=== PATIENT | male | born 1945 | race Hispanic/Latino ===

== ENCOUNTER 2017-06-19 10:00 | Emergency (ER) | payer MEDICARE ==
[~2017-06-19] VITALS: Ht 170.2 cm; Wt 83.9 kg
[2017-06-19] MEDS ORDERED: SODIUM CHLORIDE FLUSH 10 ML SYR INJ PRN (10:30)
[2017-06-19] MEDS ORDERED: OMEPRAZOLE40 MG PO (11:29)
[2017-06-19] MEDS ORDERED: ATORVASTATIN CA20 MG PO (11:29)
[2017-06-19] MEDS ORDERED: LISINOPRIL10 MG PO (11:29)
[2017-06-19] MEDS ORDERED: ULTRAM50 MG PO (11:29)
[2017-06-19] MEDS ORDERED: METOPROLOL SUCC25 MG PO (11:29)
[2017-06-19] MEDS ORDERED: AMITIZA24 MCG PO (11:29)
[2017-06-19] MEDS ORDERED: CITALOPRAM HBR20 MG PO (11:29)
[2017-06-19] MEDS ORDERED: GLIPIZIDE5 MG PO (11:29)
[2017-06-19] MEDS ORDERED: AMLODIPINE BESYL5 MG PO (11:29)
[2017-06-19 11:31] LABS: BASOPHILS # (AUTO) 0.1 (0.0-0.1); BASOPHILS % 0.6 % (0.0-1.0); EOSINOPHILS # (AUTO) 0.2 (0.0-0.4); EOSINOPHILS % 1.4 % (0.0-6.0); HEMOGLOBIN 11.3 g/dL (14.0-18.0); LYMPHOCYTES # (AUTO) 2.3 (1.0-3.2); LYMPHOCYTES % 16.2 % (18.0-39.1); MEAN CORPUSCULAR HEMOGLOBIN 30.9 pg (28-32); MEAN CORPUSCULAR HGB CONC 34.2 g/dL (31-35); MEAN CORPUSCULAR VOLUME 90.2 fL (81-99); MONOCYTES # (AUTO) 1.1 (0.2-0.8); MONOCYTES % 7.7 % (4.4-11.3); NEUTROPHILS # (AUTO) 10.2 (2.1-6.9); NEUTROPHILS % 73.2 % (38.7-80.0); PLATELET COUNT 256 x10e3/uL (140-360); RED BLOOD COUNT 3.66 x10e6/uL (4.3-5.7)
--- NOTE | 2017-06-19 11:58 | Diagnostic Imaging Report ---
RIGHT FOOT X-RAY - 3 VIEWS, RIGHT ANKLE X-RAY, 3 VIEWS HISTORY: \S\pain, unknown injury \[id number] \S\[id number] COMPARISON: None available. FINDINGS: Bones: No acute displaced fracture. Osseous alignment is within normal limits. Joints: Mild degenerative changes of the first metatarsophalangeal joint. Calcaneal enthesopathy. Soft tissues: Diffuse vascular calcifications. IMPRESSION: No acute radiographic abnormality. Signed by: Dr. Chen Merino M.D. on 06/19/2017 11:52 AM
[2017-06-19 11:59] LABS: ALBUMIN 3.2 g/dL (3.5-5.0); ALBUMIN/GLOBULIN RATIO 0.7 (0.8-2.0); ANION GAP 16.1 mmol/L (8-16); CALCIUM 9.9 mg/dL (8.4-10.2); CREATININE, SERUM 2.1 mg/dL (0.72-1.25); POTASSIUM 4.1 mmol/L (3.5-5.1)
[2017-06-19] MEDS ORDERED: LEVOFLOXACIN 750MG/D5W 150ML 150 ML IV ONE (12:30)
[2017-06-19] MEDS ORDERED: TRIMETHOPRIM/SULFAMETHOXAZOLE 160-800 MG TAB PO ONE (12:30)
== END 2017-06-19 13:43 | disposition home or self-care (01) ==
LOC: ER 10:00
DX: M25.571 Pain in right ankle and joints of right foot (principal); L03.115 Cellulitis of right lower limb; I10 Essential (primary) hypertension; E11.9 Type 2 diabetes mellitus without complications; Z95.1 Presence of aortocoronary bypass graft
CPT/HCPCS: 36415; 80053; 85025; 87040; 93971; 99284

== ENCOUNTER 2017-07-02 09:30 | Inpatient (IN) | payer MEDICARE ==
[~2017-07-02] VITALS: Ht 157.5 cm; Wt 82.6 kg
[~2017-07-02 09:30] MED LIST: AMITIZA24 MCG PO; AMLODIPINE BESYL5 MG PO; ATORVASTATIN CA20 MG PO; CITALOPRAM HBR20 MG PO; GLIPIZIDE5 MG PO; LISINOPRIL10 MG PO; METOPROLOL SUCC25 MG PO; OMEPRAZOLE40 MG PO; ULTRAM50 MG PO
--- OUTSIDE RECORDS SUMMARY | 2017-07-02 09:33 | XMS REPORT | Continuity of Care Document ---
Author Author [facility] Organization [facility] Address [address] [place] [address] Phone Unavailable Care Team Providers Care Finishing Supervisor Name Role Phone NO, PCP PCP Unavailable Insurance Providers Guarantor Garcia[employer] Address [address] [place] [address] Email PT DECLINED Payer Other Medicare Replacement Policy Number [id number] Subscriber's Name Darnell Garcia Relationship 18 Self / Same As Patient Advance Directives Directive Response Recorded Date/Time Does the patient have an advance directive? No 06/09/10 9:08am If yes, is advance directive on file with [facility]? No 06/09/10 9:08am If not on file with [facility] will patient provide a copy? No 06/09/10 9:08am Do you have a Directive to Physician? No 06/19/17 10:45am Do you have a Medical Power of Railroad Car Checker? No 06/19/17 10:45am Do you have an out of hospital Do Not Resuscitate Order? No 06/19/17 10:45am Do you have any special needs we should be aware of? No 06/19/17 10:45am Do you have a support person here with you today? Yes 06/19/17 10:45am Did patient receive Notice of Privacy Practices? Yes 06/19/17 10:45am Did patient receive patient rights and responsibilities? Yes 06/19/17 10:45am Problems No problem information available. Medications Current Home Medications Medication Dose Units Route Directions Days Qty Instructions Start Date Amlodipine Besylate 5 Mg Tablet 5 Mg Oral Daily 30 Tab Atorvastatin Calcium 20 Mg Tablet 40 Mg Oral Bedtime 30 Tab Citalopram Hydrobromide (Citalopram Hbr) 20 Mg Tablet 20 Mg Oral Daily Glipizide 5 Mg Tablet 5 Mg Oral Daily Lisinopril 10 Mg Tablet 10 Mg Oral Twice A Day 30 Tab Lubiprostone (Amitiza) 24 Mcg Capsule 24 Mcg Oral Twice A Day 60 Cap Metoprolol Succinate 25 Mg Tab.er.24h 25 Mg Oral Daily Omeprazole 40 Mg Capsule.dr 20 Mg Oral Daily Tramadol Hcl (Ultram) 50 Mg Tablet 50 Mg Oral Every 6 Hours as needed for Pain Social History Smoking Status Start Date Stop Date Never Smoker Hospital Discharge Instructions No hospital discharge instruction information available. Plan of Care Discharge Date 06/19/17 1:43pm Disposition HOME, SELF-CARE Condition at Discharge Stable Instructions/Education Provided Cellulitis Wound Care (General) Forms Provided Work/School Excuse Prescriptions See Medication Section Referrals TATIANA QUINTERO MD Address: [address] [place] [id number] Additional Instructions/Education PLAN: 1) Discharge to home. 2) Follow up with MD on Wednesday06-21-17. Contact information for Dr Tatiana Quintero given to patient. Please call on WEDNESDAY to make a follow up appointment. 3) Continue to take all of your home medication as prescribed. 4) Take Bactrim DS 1 every 12 hours for 7 days. You were given one oral dose of this medication in the ER today. 5) Take Levaquin 750mg once a day for 7 days. You were given one dose of this medication in your IV today in the ER. 6) Elevate the leg at rest. 7) Avoid excessive physical activity. 8) Watch the area closely for any worsening problems. If you have increased redness, swelling, pain, fever, vomiting, discoloration of the foot/toes/leg, please return to the emergency room for reevaluation. 9) Keep your foot clean and dry. Apply antibiotic ointment to the wound on your 4th toe two or three times a day. Functional Status No functional status information available. Allergies, Adverse Reactions, Alerts No known allergies. Immunizations No immunization information available. Vital Signs Acute Vital Signs Vital Response Date/Time Height 5 ft 7 in 06/19/2017 10:06am Weight 185 lb 06/19/2017 10:06am Body Mass Index 29.0 kg/m^2 06/19/2017 10:06am Results Laboratory Results Test Name Result Units Flags Reference Collection Date/Time Result Date/ Time Comments White Blood Count 13.89 x10e3/uL H 4.8-10.8 06/19/2017 10:55am 2017 11:32am Red Blood Count 3.66 x10e6/uL L 4.3-5.7 06/19/2017 10:55am 06/19/2017 11 :32am Hemoglobin 11.3 g/dL L 14.0-18.0 06/19/2017 10:55am 06/19/2017 11:32am Hematocrit 33.0 % L 38.2-49.6 06/19/2017 10:55am 06/19/2017 11:32am Mean Corpuscular Volume 90.2 fL 81-99 06/19/2017 10:55am 06/19/2017 11: 32am Mean Corpuscular Hemoglobin 30.9 pg 28-32 06/19/2017 10:55am 2017 11:32am Mean Corpuscular Hemoglobin Concent 34.2 g/dL 31-35 06/19/2017 10:55am 06/19/2017 11:32am Red Cell Distribution Width 12.0 % 11.7-14.4 06/19/2017 10:55am 2017 11:32am Platelet Count 256 x10e3/uL 140-360 06/19/2017 10:55am 06/19/2017 11: 32am Neutrophils (%) (Auto) 73.2 % 38.7-80.0 06/19/2017 10:55am 06/19/2017 11:32am Lymphocytes (%) (Auto) 16.2 % L 18.0-39.1 06/19/2017 10:55am 06/19/2017 11:32am Monocytes (%) (Auto) 7.7 % 4.4-11.3 06/19/2017 10:55am 06/19/2017 11: 32am Eosinophils (%) (Auto) 1.4 % 0.0-6.0 06/19/2017 10:55am 06/19/2017 11: 32am Basophils (%) (Auto) 0.6 % 0.0-1.0 06/19/2017 10:55am 06/19/2017 11: 32am IM GRANULOCYTES % 0.9 % 0.0-1.0 06/19/2017 10:55am 06/19/2017 11:32am Neutrophils # (Auto) 10.2 H 2.1-6.9 06/19/2017 10:55am 06/19/2017 11: 32am Lymphocytes # (Auto) 2.3 1.0-3.2 06/19/2017 10:55am 06/19/2017 11: 32am Monocytes # (Auto) 1.1 H 0.2-0.8 06/19/2017 10:55am 06/19/2017 11: 32am Eosinophils # (Auto) 0.2 0.0-0.4 06/19/2017 10:55am 06/19/2017 11: 32am Basophils # (Auto) 0.1 0.0-0.1 06/19/2017 10:55am 06/19/2017 11:32am Absolute Immature Granulocyte (auto 0.13 x10e3/uL H 0-0.1 06/19/2017 10: 5506/19/2017 11:32am Sodium Level 132 mmol/L L 136-145 06/19/2017 10:5506/19/2017 12:01pm Potassium Level 4.1 mmol/L 3.5-5.1 06/19/2017 10:5506/19/2017 12: 01pm Chloride Level 94 mmol/L L 98-107 06/19/2017 10:5506/19/2017 12:01pm Carbon Dioxide Level 26 mmol/L 22-29 06/19/2017 10:5506/19/2017 12: 01pm Anion Gap 16.1 mmol/L H 8-16 06/19/2017 10:5506/19/2017 12:01pm Blood Urea Nitrogen 32 mg/dL H 7-26 06/19/2017 10:5506/19/2017 12: 01pm Creatinine 2.10 mg/dL H 0.72-1.25 06/19/2017 10:5506/19/2017 12:01pm BUN/Creatinine Ratio 15 6-25 06/19/2017 10:5506/19/2017 12:01pm Estimat Glomerular Filtration Rate 31 ML/MIN L 60- 06/19/2017 10:55am 12:01pm Ranges were taken from the National Kidney Disease Education Program and the National Kidney Foundation literature. Reference ranges: 60 or greater: Normal 16-59 (for 3 consecutive months): Chronic kidney disease 15 or less: Kidney failure Glucose Level 165 mg/dL H 74-118 06/19/2017 10:55am 06/19/2017 12:01pm Calcium Level 9.9 mg/dL 8.4-10.2 06/19/2017 10:55am 06/19/2017 12:01pm Total Bilirubin 1.4 mg/dL H 0.2-1.2 06/19/2017 10:55am 06/19/2017 12: 01pm Aspartate Amino Transf (AST/SGOT) 16 IU/L 5-34 06/19/2017 10:55am 06/19 12:01pm Alanine Aminotransferase (ALT/SGPT) 19 IU/L 0-55 06/19/2017 10:55am 06/2017 12:01pm Total Protein 7.7 g/dL 6.5-8.1 06/19/2017 10:55am 06/19/2017 12:01pm Albumin 3.2 g/dL L 3.5-5.0 06/19/2017 10:55am 06/19/2017 12:01pm Globulin 4.5 g/dL H 2.3-3.5 06/19/2017 10:55am 06/19/2017 12:01pm Albumin/Globulin Ratio 0.7 L 0.8-2.0 06/19/2017 10:55am 06/19/2017 12: 01pm Alkaline Phosphatase 67 IU/L 40-150 06/19/2017 10:55am 06/19/2017 12: 01pm Procedures No procedure information available. Encounters Encounter Location Arrival/Admit Date Discharge/Depart Date Attending Provider Departed Emergency Room [facility] 06/19/17 10:00am 06/19 1:43pm SOPHIA GAVIRIA MD
--- OUTSIDE RECORDS SUMMARY | 2017-07-02 09:33 | XMS REPORT ---
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 Allergies, Adverse Reactions, Alerts This patient has no known allergies or adverse reactions. Medications This patient has no known medications. Results Test Description Test Time Test Comments Text Results Atomic Results Result Comments FOOT RIGHT COMPLETE [place] [id number] [place] [address] Patient Name: GUIDO GARCIA MR #: [id number] : 1945 Age/Sex: 72/M Req # : [id number] Adm Physician: Ordered by: PAOLA PATEL Report #: [id number] Location: ER Room/Bed: Procedure: [id number] 0017 DX/FOOT RIGHT COMPLETE Exam Date: 06/19/17 Exam Time: 1130 REPORT STATUS: Signed RIGHT FOOT X-RAY - 3 VIEWS, RIGHT ANKLE X-RAY, 3 VIEWS HISTORY: COMPARISON: None available. FINDINGS: Bones: No acute displaced fracture. Osseous alignment is within normal limits. Joints: Mild degenerative changes of the first metatarsophalangeal joint. Calcaneal enthesopathy. Soft tissues: Diffuse vascular calcifications. IMPRESSION: No acute radiographic abnormality. Signed by: Dr. Susan Cordova M.D. on 06/19/2017 11:52 AM Dictated By: SUSAN CORDOVA MD 51 Transcribed By: ISAÍAS on 06/19/171151 COPY TO: PAOLA PATEL ANKLE 3 + VIEWS RIGHT [place] [address] Patient Name: GUIDO GARCIA MR #: [id number] : 1945 Age/Sex: 72/M Req # : [id number] Adm Physician: Ordered by: PAOLA PATEL Report #: [id number] Location: ER Room/Bed: Procedure: [id number] 0016 DX/ANKLE 3 + VIEWS RIGHT Exam Date: 06/19/17 Exam Time: 1130 REPORT STATUS: Signed RIGHT FOOT X-RAY - 3 VIEWS, RIGHT ANKLE X-RAY, 3 VIEWS HISTORY: COMPARISON: None available. FINDINGS: Bones: No acute displaced fracture. Osseous alignment is within normal limits. Joints: Mild degenerative changes of the first metatarsophalangeal joint. Calcaneal enthesopathy. Soft tissues: Diffuse vascular calcifications.
[2017-07-02 10:20] LABS: BASOPHILS # (AUTO) 0.1 (0.0-0.1); BASOPHILS % 0.4 % (0.0-1.0); EOSINOPHILS # (AUTO) 0.1 (0.0-0.4); EOSINOPHILS % 1.1 % (0.0-6.0); HEMATOCRIT 34.6 % (38.2-49.6); HEMOGLOBIN 11.8 g/dL (14.0-18.0); LYMPHOCYTES % 16.5 % (18.0-39.1); MEAN CORPUSCULAR HEMOGLOBIN 30.5 pg (28-32); MEAN CORPUSCULAR HGB CONC 34.1 g/dL (31-35); MEAN CORPUSCULAR VOLUME 89.4 fL (81-99); MONOCYTES # (AUTO) 0.8 (0.2-0.8); MONOCYTES % 6.1 % (4.4-11.3); NEUTROPHILS # (AUTO) 9.2 (2.1-6.9); NEUTROPHILS % 74.5 % (38.7-80.0); PLATELET COUNT 391 x10e3/uL (140-360); RED BLOOD COUNT 3.87 x10e6/uL (4.3-5.7); RED CELL DISTRIBUTION WIDTH 11.6 % (11.7-14.4)
[2017-07-02 10:36] LABS: ALBUMIN 3.3 g/dL (3.5-5.0); ALBUMIN/GLOBULIN RATIO 0.6 (0.8-2.0); ANION GAP 15.7 mmol/L (8-16); CALCIUM 10.5 mg/dL (8.4-10.2); CREATININE, SERUM 2.7 mg/dL (0.72-1.25); POTASSIUM 5.7 mmol/L (3.5-5.1)
--- NOTE | 2017-07-02 10:49 | Diagnostic Imaging Report ---
PROCEDURE:X-RAY RIGHT ANKLE, COMPLETE INDICATION:Pain COMPARISON:[facility], DX, ANKLE 3 + VIEWS RIGHT, 06/19/2017, 11:29. FINDINGS:No fracture or dislocation. Vascular calcification is present. Mild soft tissue swelling adjacent to the medial malleolus. Mild calcaneal spurring. CONCLUSION:No acute bony abnormality. Bill Gutierrez D.O. Dictated by: Bill Gutierrez D.O. on 07/02/2017 at 10:51 Electronically approved by: Bill Gutierrez D.O. on 07/02/2017 at 10:51
[2017-07-02] MEDS ORDERED: INSULIN REGULAR, HUMAN 100 UNIT/1 ML 3ML VIAL SQ ONE (11:30)
[2017-07-02] MEDS ORDERED: INSULIN REGULAR, HUMAN 100 UNIT/1 ML 3ML VIAL IV ONE (11:45)
[2017-07-02] MEDS ORDERED: SODIUM CHLORIDE FLUSH 10 ML SYR INJ PRN (11:45)
[2017-07-02] MEDS ORDERED: DEXTROSE 50% SYRINGE 50 ML IV PRN (11:45)
[2017-07-02] MEDS ORDERED: SOD POLYSTYRENE SULFONATE SUSP 15 GM/60 ML BTL PR ONE (11:45)
--- NOTE | 2017-07-02 12:43 | Diagnostic Imaging Report ---
PROCEDURE: A single AP view of the chest. COMPARISON: Patients [facility], , CHEST SINGLE, 12/24/2010, 13:03. INDICATIONS: RIGHT FOOT PAIN FINDINGS: Lines/tubes: None. Lungs: The lungs are well inflated and grossly clear. There is no evidence of pneumonia or pulmonary edema. Pleura: There is no pleural effusion or pneumothorax. Heart and mediastinum: Cardiac silhouette in the upper limit of normal. Pulmonary vasculature is normal. Bones: No acute bony abnormality. IMPRESSION: 1. No acute cardiopulmonary disease. Rehan Babcock M.D. Dictated by: Rehan Babcock M.D. on 07/02/2017 at 12:45 Electronically approved by: Rehan Babcock M.D. on 07/02/2017 at 12:45
[2017-07-02 14:00] VITALS: BP 121/60
[2017-07-02 14:11] LABS: CREATINE KINASE MB 1.4 ng/mL (0-5.0)
[2017-07-02 14:21] VITALS: BP 96/48
[2017-07-02 15:52] VITALS: BP 121/60
[2017-07-02] MEDS ORDERED: GABAPENTIN300 MG PO (16:10)
[2017-07-02] MEDS ORDERED: CLOPIDOGREL75 MG PO (16:10)
[2017-07-02] MEDS ORDERED: FUROSEMIDE40 MG PO (16:10)
[2017-07-02] MEDS ORDERED: LANTUS 3ML100 UNITS/ SC (17:22)
[2017-07-02] MEDS: INSULIN REGULAR, HUMAN 100 UNIT/1 ML 3ML VIAL SQ SCH ×2 (17:47→20:53)
[2017-07-02 18:48] LABS: PARTIAL THROMBOPLASTIN TIME 41.8 seconds (23.8-35.5)
[2017-07-02 18:51] LABS: CREATINE KINASE MB 1.2 ng/mL (0-5.0)
[2017-07-02 18:52] LABS: INR 1.21; PROTHROMBIN TIME 14.4 seconds (11.9-14.5)
[2017-07-02 19:30] VITALS: BP 98/47
[2017-07-02 20:00] VITALS: BP 98/47
--- NOTE | 2017-07-02 20:28 | History and Physical ---
The patient comes in with right ankle injury. The patient was in usual state of health until patient about 4 or 5 days ago, the patient, apparently, had ankle injury, twisted his ankle, and the patient came in with swelling and wound to the right 5th and 4th toe. The patient was taken to [facility], which is an urgent care center. The patient was given antibiotics and patient, initially, was on antibiotics and still continues to have the pain. Patient complains of pain on right back for last 1 week and currently, the patient came in, was found to have hyponatremia and hyperglycemia and admitted for the same. PAST MEDICAL HISTORY: History of coronary artery disease, history of hypertension, history of diabetes mellitus, history of coronary artery disease, history of long time use of insulin, history of neuropathy and history of peripheral arterial disease. MEDICINES: He takes at home are 1. Amlodipine 5 mg. 2. Atorvastatin 200 mg, 40 mg at night time. 3. Citalopram for depression 20 mg. 4. 75 mg. 5. Lasix 40. 6. Gabapentin 300 mg. 7. Glipizide 5 mg. 8. Insulin 75 mg q.12 h. 9. Lisinopril 12 mg. 10. Amitiza 24 mcg for gastroparesis. 11. Metoprolol 25 mg ER. 12. Omeprazole 40 mg. 13. Tramadol 40 mg q.4 h for pain. ALLERGIES: NO ALLERGIES NOTED. SOCIAL HISTORY: No EtOH, no IV drug abuse. Lives with family. REVIEW OF SYSTEMS: Negative for chest pain. No shortness of breath. No nausea, vomiting, diarrhea, no constipation, no rectal bleeding, no hematochezia, no hematemesis. Positive for pain in the foot. EXAMINATION GENERAL: Patient is alert and oriented times 3. No acute distress. HEENT: Normocephalic, atraumatic. Pupils react to light and accommodation. CVS: S1, S2 normal. Regular rate, rhythm. NECK: No JVD LUNGS: Respirations, good air entry in his lung bases. ABDOMEN: Nontender, nondistended. Positive for scar in the front for CABG. SKIN: Normal. Intact. EXTREMITIES: Erythema in the right ankle. Positive for tenderness also. Patient's gait is abnormal gait limping. NEUROVASCULAR: Decreased pulses on both sides. NEUROLOGIC: Alert and oriented times 3. X-RAYS: Negative on the right ankle. LABORATORY VALUES: The patient's sodium is 129, potassium 5.7, chloride of 95, BUN was 49, creatinine of 2.7, EGFR 23, glucose 415, of 9.3, calcium of 10.5. Hematology, white count is 12.36, hemoglobin is 11.8, neutrophil count of 9.2. Coags are PTT is 41.9, INR is 1.21. IMAGING STUDIES: Chest x-ray with no acute cardiopulmonary disorders. Ankle x-ray, no acute abnormalities. ASSESSMENT 1. Right ankle pain. Will go ahead get magnetic resonance imaging of the ankles especially with the history of taking continuous antibiotics, will go ahead and magnetic resonance imaging it. Patient has a white count. Will start the patient on Zosyn at renal dose. 2. Chronic kidney disease. Will consult Dr. Randolph. Give the patient some fluids, also check his potassium tomorrow. Will also take him off his lisinopril twice a day for hypokalemia. Will hold it and continue his metoprolol given some fluids at 70 mL an hour to replace the sodium. Check a sodium in the morning tomorrow too. The patient will need also consult with infectious disease for possible Charcot joint versus infectious right ankle, put him on some Zosyn and also, vancomycin. Further recommendation per clinical course. Will continue monitor the patient and involve with the consultants. Job#: [id number]
[2017-07-02] MEDS: SODIUM CHLORIDE 0.9% 1000ML 1,000 ML IV SCH (20:52)
[2017-07-02] MEDS: ATORVASTATIN 40 MG TAB PO SCH (20:53)
[2017-07-02] MEDS: PIPERACILLIN/TAZO 2.25 GM 50 ML IV SCH (20:55)
[2017-07-02] MEDS: INSULIN DETEMIR 100 UNIT/ML PEN SQ SCH (20:55)
[2017-07-02] MEDS ORDERED: ATORVASTATIN 20 MG TAB PO SCH (21:00)
[2017-07-03] VITALS (7 sets, daily range): BP systolic 116–151; BP diastolic 55–65
[2017-07-03] MEDS: PIPERACILLIN/TAZO 2.25 GM 50 ML IV SCH ×2 (05:32→14:08)
--- NOTE | 2017-07-03 05:57 | Diagnostic Imaging Report ---
EXAMINATION: CHEST SINGLE (PORTABLE) INDICATION: Elevated potassium COMPARISON: 07/02/2017 FINDINGS: TUBES and LINES: None. LUNGS: Lungs are not well inflated. There are bibasilar atelectasis. There is no evidence of pneumonia or pulmonary edema. PLEURA: No pleural effusion or pneumothorax. HEART AND MEDIASTINUM: The cardiomediastinal silhouette is remarkable for stable midline sternotomy wires. There are atherosclerotic calcifications within the aorta. BONES AND SOFT TISSUES: No acute osseous lesion. Soft tissues are unremarkable. UPPER ABDOMEN: No free air under the diaphragm. IMPRESSION: No acute thoracic abnormality. Signed by: Dr. Roger Shirley M.D. on 07/03/2017 5:53 AM
[2017-07-03 08:03] LABS: BASOPHILS % 0.3 % (0.0-1.0); EOSINOPHILS # (AUTO) 0.2 (0.0-0.4); EOSINOPHILS % 1.9 % (0.0-6.0); HEMOGLOBIN 9.8 g/dL (14.0-18.0); LYMPHOCYTES # (AUTO) 2.8 (1.0-3.2); LYMPHOCYTES % 22.5 % (18.0-39.1); MEAN CORPUSCULAR HEMOGLOBIN 30.2 pg (28-32); MEAN CORPUSCULAR HGB CONC 33.8 g/dL (31-35); MEAN CORPUSCULAR VOLUME 89.5 fL (81-99); MONOCYTES # (AUTO) 0.8 (0.2-0.8); MONOCYTES % 6.6 % (4.4-11.3); NEUTROPHILS # (AUTO) 8.5 (2.1-6.9); NEUTROPHILS % 67.5 % (38.7-80.0); PLATELET COUNT 337 x10e3/uL (140-360); RED BLOOD COUNT 3.24 x10e6/uL (4.3-5.7); RED CELL DISTRIBUTION WIDTH 11.8 % (11.7-14.4)
[2017-07-03] MEDS: INSULIN REGULAR, HUMAN 100 UNIT/1 ML 3ML VIAL SQ SCH ×4 (08:17→21:11)
[2017-07-03 08:24] LABS: ALBUMIN 2.7 g/dL (3.5-5.0); ALBUMIN/GLOBULIN RATIO 0.6 (0.8-2.0); CALCIUM 9.4 mg/dL (8.4-10.2); CREATININE, SERUM 2.71 mg/dL (0.72-1.25)
[2017-07-03 08:57] LABS: INR 1.3; PROTHROMBIN TIME 15.2 seconds (11.9-14.5)
[2017-07-03 08:58] LABS: PARTIAL THROMBOPLASTIN TIME 52.2 seconds (23.8-35.5)
[2017-07-03] MEDS ORDERED: LISINOPRIL 10 MG TAB PO SCH (09:00)
[2017-07-03 09:15] LABS: MAGNESIUM 1.9 MG/DL (1.3-2.1)
[2017-07-03] MEDS: CLOPIDOGREL BISULFATE 75 MG TAB PO SCH (09:32)
[2017-07-03] MEDS: PANTOPRAZOLE SOD 40 MG TABEC PO SCH (09:32)
[2017-07-03] MEDS: LUBIPROSTONE 24 MCG CAP PO SCH ×2 (09:32→16:48)
[2017-07-03] MEDS: GABAPENTIN 300 MG CAP PO SCH ×2 (09:32→16:48)
[2017-07-03] MEDS: AMLODIPINE BESYLATE 5 MG TAB PO SCH (09:32)
[2017-07-03] MEDS: CITALOPRAM HYDROBROMIDE 20 MG TAB PO SCH (09:32)
[2017-07-03] MEDS: METOPROLOL SUCCINATE 25 MG TAB XL PO SCH (09:32)
[2017-07-03] MEDS: GLIPIZIDE 5 MG TAB PO SCH ×2 (09:32→16:48)
[2017-07-03 09:39] LABS: ANION GAP 14.2 mmol/L (8-16)
[2017-07-03 09:40] LABS: POTASSIUM 4.2 mmol/L (3.5-5.1)
[2017-07-03 09:44] LABS: THYROID STIMULATING HORMONE 0.298 uIU/mL (0.350-4.940)
[2017-07-03] MEDS: INSULIN DETEMIR 100 UNIT/ML PEN SQ SCH ×2 (10:20→21:11)
[2017-07-03] MEDS: SODIUM CHLORIDE 0.9% 1000ML 1,000 ML IV SCH (10:32)
[2017-07-03 11:03] LABS: BILIRUBIN,URINE NEGATIVE (NEGATIVE); CLARITY,URINE CLEAR (CLEAR); COLOR,URINE YELLOW (YELLOW); KETONES,URINE NEGATIVE (NEGATIVE); LEUKOCYTE ESTERASE ,URINE NEGATIVE (NEGATIVE); NITRITE,URINE NEGATIVE (NEGATIVE); PROTEIN,URINE DIPSTICK TRACE (NEGATIVE); URINE UROBILINOGEN 0.2 mg/dL (0.2 - 1)
[2017-07-03 11:15] LABS: BACTERIA,URINE FEW /HPF; EPITHELIAL CELLS,URINE RARE /LPF; RBC,URINE 0-5 /HPF (0-5); WBC,URINE (MAN) 0-5 /HPF (0-5)
[2017-07-03 11:17] LABS: CREATININE,URINE RANDOM 87.95 mg/dL (63-166); SODIUM,URINE 43 mmol/L
--- NOTE | 2017-07-03 12:49 | Consultation ---
DATE OF CONSULTATION: July 03, 2017 NEPHROLOGY CONSULTATION REASON FOR CONSULTATION: Tocpo-no-gvsnipx kidney disease. HISTORY OF PRESENT ILLNESS: This is a 72-year-old gentleman with a past medical history of chronic kidney disease, stage 3 with baseline serum creatinine of 2 mg/dL as of June 19, 2017, hypertension, diabetes mellitus, history of coronary artery disease, history of neuropathy, peripheral arterial disease, who was admitted with right ankle injury about 4-5 days ago. In the ER as well, sodium was noted to be 129, potassium 5.7 and creatinine of 2.7 for which nephrology consultation is obtained for further evaluation and management. At the time of my examination, he appeared in no acute distress and denied any nausea, vomiting, headache, blurring of vision, chest pain, shortness of breath, cough, phlegm, fever, chills, abdominal pain, diarrhea, urinary problems, or any new focal weakness. PAST MEDICAL AND SURGICAL HISTORY: As above. PERSONAL AND SOCIAL HISTORY: No history of alcohol or tobacco. MEDICATIONS: He was on lisinopril, Lasix along with other medications. PHYSICAL EXAMINATION GENERAL: He appeared in no acute distress. VITALS: Blood pressure was 116/55, respirations 20, heart rate 75, temperature 96.6. HEENT: Head was atraumatic and normocephalic. Pupils were reactive to light. Oral mucosa was slightly dry. NECK: Supple. CHEST: Revealed fair air entry. HEART: S1 and S2. ABDOMEN: Obese. Bowel sounds were positive. EXTREMITIES: No edema. 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 Cranial nerves were intact. There was no gross motor deficit noted. LABS: White cell count 12.6, hemoglobin 9.8, hematocrit 29, and platelets 337,000. Chemistries were pending, but from yesterday sodium was 129, potassium 5.7, chloride 95, CO2 24, BUN 49, creatinine 2.7, glucose 415. Chest x-ray did not show any acute pathology. IMPRESSION 1. Mmqeq-wz-yjzwtgn kidney disease most likely secondary to some degree of prerenal azotemia with lisinopril on board causing intrarenal hemodynamic impairment resulting in acute kidney injury: He appears to be nonoliguric by history. 2. Mild hyponatremia and hyperkalemia possibly from a combination of scwrz-me-kwdavhn kidney disease with lisinopril on board. 3. Right ankle injury. 4. Anemia probably secondary to chronic kidney disease. PLAN: Strict I's and O's. No nonsteroidal anti-inflammatory drugs, lisinopril, ARBs. Hold lisinopril for now. CBC and BMP in the a.m. Ultrasound of the kidneys. UA, spot urine sodium and creatinine today. Continue IV fluids. Ultrasound of the kidneys. Further recommendations to follow. Thank you for the consultation. Job#: [id number] COURTNEY
[2017-07-03] MEDS ORDERED: CLINDAMYCIN 600MG/D5W 50ML 50 ML IV SCH (14:30)
--- NOTE | 2017-07-03 17:54 | Consultation ---
DATE OF CONSULTATION: REASON FOR CONSULTATION: Right ankle pain, concern for cellulitis. HISTORY OF PRESENT ILLNESS: This patient, who is a 71-osdy-bvl-gentleman, who has history of hypertension, hypercholesterolemia, and diabetes mellitus, comes into the hospital with a history of ankle injury. He twisted his ankle about 5 days ago. He had redness and swelling and wound to his right 5th and 4th toes. The patient was taken to [facility]. The patient was given oral antibiotic, but he continued to have pain. He has pain in the ankle. The patient came to see a physician and was admitted because his labs showed him to be hyponatremic and hyperglycemic. Patient is currently lying in bed comfortably. He has no specific complaints. PAST MEDICAL HISTORY: Hypertension diabetes, mellitus, coronary artery disease, neuropathy, peripheral vascular disease. PAST SURGICAL HISTORY: Denies. ALLERGIES: NKA. SOCIAL HISTORY: There is no smoking, drug abuse or alcohol abuse. FAMILY HISTORY: Hypertension and diabetes. REVIEW OF SYSTEMS GENERAL: At present time, he is doing well. HEENT: There is no headache, visual changes or hearing changes. GI: There is no nausea, no vomiting, no diarrhea. CARDIAC: There is no arrhythmia. NEURO: No seizure activity. SKIN: There is no rash. The patient also does have underlying history of chronic kidney disease. Patient was admitted. He was seen by renal. Infectious disease was consulted. LABORATORY DATA: White count on admission was 12.6, hemoglobin 11.8, platelets 91. Sodium 137, potassium 4.2, creatinine 2.7. Liver enzymes within normal limits. An x-ray of the ankle was ordered, which showed there is no acute abnormality. MRI is still pending. PHYSICAL EXAMINATION GENERAL: He is currently alert and oriented, does not seem to be in acute distress. VITALS: Stable, currently afebrile. HEENT: He does not appear icteric. Normocephalic. NECK: Supple. No JVD. No lymphadenopathy. No thyromegaly. CHEST: Clear bilaterally. HEART: S1 and S2. No S3 or S4. No murmur. ABDOMEN: Soft. Bowel sounds present. No tenderness. EXTREMITIES: There are erythema and edema of the right ankle. IMPRESSION: Inflammation of the ankle. While this could be infection, concerned about arthritic changes. I would recommend to obtain uric acid, sed rate, C-reactive protein and rheumatoid factor. Agree with MRI. Unfortunately, we cannot do contrast, but it would be beneficial. If there is fluid, then we can aspirate and differentiate between infection versus arthritic. I would suggest to put him on clindamycin in the meantime. Will follow. Job#: [id number]
[2017-07-03] MEDS: HYDROCODONE/APAP 10MG-325MG TAB PO PRN (21:10)
[2017-07-03] MEDS: ATORVASTATIN 40 MG TAB PO SCH (21:11)
[2017-07-03] MEDS: CLINDAMYCIN 600MG/D5W 50ML 50 ML IV SCH (21:11)
[2017-07-03] MEDS: METHYLPREDNISOLONE SOD SUCC 40 MG/ML VIAL IV SCH (21:11)
[2017-07-04] VITALS (7 sets, daily range): BP systolic 131–181; BP diastolic 61–81
[2017-07-04] MEDS: CLINDAMYCIN 600MG/D5W 50ML 50 ML IV SCH ×3 (05:37→21:20)
[2017-07-04 07:29] LABS: BASOPHILS % 0.3 % (0.0-1.0); EOSINOPHILS % 0.2 % (0.0-6.0); HEMATOCRIT 28.9 % (38.2-49.6); HEMOGLOBIN 9.6 g/dL (14.0-18.0); LYMPHOCYTES # (AUTO) 1.3 (1.0-3.2); LYMPHOCYTES % 10.6 % (18.0-39.1); MEAN CORPUSCULAR HEMOGLOBIN 30.7 pg (28-32); MEAN CORPUSCULAR HGB CONC 33.2 g/dL (31-35); MEAN CORPUSCULAR VOLUME 92.3 fL (81-99); MONOCYTES # (AUTO) 0.2 (0.2-0.8); MONOCYTES % 1.4 % (4.4-11.3); NEUTROPHILS # (AUTO) 10.3 (2.1-6.9); NEUTROPHILS % 86.6 % (38.7-80.0); PLATELET COUNT 370 x10e3/uL (140-360); RED BLOOD COUNT 3.13 x10e6/uL (4.3-5.7); RED CELL DISTRIBUTION WIDTH 11.8 % (11.7-14.4)
[2017-07-04 08:14] LABS: ANION GAP 14.5 mmol/L (8-16); CALCIUM 9.2 mg/dL (8.4-10.2); CREATININE, SERUM 2.13 mg/dL (0.72-1.25); POTASSIUM 5.5 mmol/L (3.5-5.1)
[2017-07-04] MEDS ORDERED: DEXTROSE 50% SYRINGE 50 ML IV PRN (08:15)
[2017-07-04] MEDS: INSULIN DETEMIR 100 UNIT/ML PEN SQ SCH ×2 (08:39→20:28)
[2017-07-04] MEDS: METHYLPREDNISOLONE SOD SUCC 40 MG/ML VIAL IV SCH ×2 (08:39→20:27)
[2017-07-04] MEDS: GLIPIZIDE 5 MG TAB PO SCH ×2 (08:39→16:44)
[2017-07-04] MEDS: CITALOPRAM HYDROBROMIDE 20 MG TAB PO SCH (08:40)
[2017-07-04] MEDS: INSULIN REGULAR, HUMAN 100 UNIT/1 ML 3ML VIAL SQ SCH ×4 (08:40→20:27)
[2017-07-04] MEDS: AMLODIPINE BESYLATE 5 MG TAB PO SCH (08:40)
[2017-07-04] MEDS: LUBIPROSTONE 24 MCG CAP PO SCH ×2 (08:40→16:39)
[2017-07-04] MEDS: CLOPIDOGREL BISULFATE 75 MG TAB PO SCH (08:40)
[2017-07-04] MEDS: GABAPENTIN 300 MG CAP PO SCH ×2 (08:40→16:44)
[2017-07-04] MEDS: METOPROLOL SUCCINATE 25 MG TAB XL PO SCH (08:40)
[2017-07-04] MEDS: PANTOPRAZOLE SOD 40 MG TABEC PO SCH (08:40)
[2017-07-04] MEDS ORDERED: SOD POLYSTYRENE SULFONATE SUSP 15 GM/60 ML BTL PO NR (10:00)
[2017-07-04] MEDS ORDERED: INSULIN REGULAR, HUMAN 100 UNIT/1 ML 3ML VIAL SQ SCH (11:30)
[2017-07-04 15:25] LABS: ANION GAP 15.6 mmol/L (8-16); CALCIUM 9.9 mg/dL (8.4-10.2); CREATININE, SERUM 2.01 mg/dL (0.72-1.25); POTASSIUM 4.6 mmol/L (3.5-5.1)
[2017-07-04] MEDS: HYDROCODONE/APAP 10MG-325MG TAB PO PRN (19:36)
[2017-07-04] MEDS: ATORVASTATIN 40 MG TAB PO SCH (20:27)
[2017-07-05] VITALS (7 sets, daily range): BP systolic 142–172; BP diastolic 63–72
[2017-07-05] MEDS: CLINDAMYCIN 600MG/D5W 50ML 50 ML IV SCH ×3 (06:10→22:16)
[2017-07-05 07:37] LABS: ANION GAP 14.1 mmol/L (8-16); CALCIUM 9.5 mg/dL (8.4-10.2); CREATININE, SERUM 1.81 mg/dL (0.72-1.25); POTASSIUM 4.1 mmol/L (3.5-5.1)
[2017-07-05] MEDS: GLIPIZIDE 5 MG TAB PO SCH ×2 (08:22→17:30)
[2017-07-05] MEDS: PANTOPRAZOLE SOD 40 MG TABEC PO SCH (08:23)
[2017-07-05] MEDS: INSULIN REGULAR, HUMAN 100 UNIT/1 ML 3ML VIAL SQ SCH ×4 (08:23→21:00)
[2017-07-05] MEDS: GABAPENTIN 300 MG CAP PO SCH ×2 (08:23→17:30)
[2017-07-05] MEDS: METOPROLOL SUCCINATE 25 MG TAB XL PO SCH (08:23)
[2017-07-05] MEDS: LUBIPROSTONE 24 MCG CAP PO SCH ×2 (08:23→16:50)
[2017-07-05] MEDS: AMLODIPINE BESYLATE 5 MG TAB PO SCH (08:23)
[2017-07-05] MEDS: CLOPIDOGREL BISULFATE 75 MG TAB PO SCH (08:23)
[2017-07-05] MEDS: INSULIN DETEMIR 100 UNIT/ML PEN SQ SCH ×2 (08:23→21:00)
[2017-07-05] MEDS: CITALOPRAM HYDROBROMIDE 20 MG TAB PO SCH (08:23)
[2017-07-05] MEDS: METHYLPREDNISOLONE SOD SUCC 40 MG/ML VIAL IV SCH ×2 (08:23→21:00)
--- NOTE | 2017-07-05 08:56 | Diagnostic Imaging Report ---
MRI of the right ankle without contrast. MRI of the right foot without contrast. History: Infection. Hyperkalemia. Ulcer. Injury. Small wound to the right fifth toe. Technique: Multiplanar multisequence MRI of the right ankle without contrast. Multiplanar multisequence MRI of the right foot without contrast. Comparison: Radiographs 06/19/2017 Findings: Right ankle MRI: Achilles tendon and plantar fascia: The Achilles tendon is intact. There is thickening and degeneration involving the medial cord of the plantar fascia. There is a small amount of retrocalcaneal bursal fluid. Cartilage and bone: Negative for osteochondral lesion of the tibiotalar and subtalar joints. Negative for fracture, osteonecrosis, or dislocation. Scattered degenerative changes are seen. There is mild bone marrow edema in the medial malleolus which could be due to a contusion or stress response. Medial ankle: There is scarring of the deltoid ligament complex. There is distal posterior tibial tendinosis with partial tearing and fluid surrounding the tendon. This is best seen on series 11 image 18. The remainder of the medial flexor tendons are intact. Lateral ankle: There is a sprain/partial tear of the anterior talofibular and calcaneofibular ligament. The posterior talofibular ligament are intact. The syndesmotic ligaments are intact. There is peroneus brevis tendinosis with splitting of the tendon at the tip of the fibula. This is best seen on series 11 image 20. There is adjacent soft tissue edema. No subluxation is seen. The retinacular tissues are intact. No full-thickness tear or retraction. Anterior ankle: The anterior extensor tendons are normal. Other findings: There is a tibiotalar joint effusion and mild synovitis. There is soft tissue edema about the foot/ankle which could be due to cellulitis. No well-formed drainable fluid collection/abscess is seen. Right foot MRI: There is no acute fracture, dislocation or evidence of avascular necrosis about the foot. No osseous erosion or focal bone marrow edema is seen to suggest osteomyelitis. No ligamentous or tendon tear is seen about the foot. Impression: No acute fracture, dislocation or avascular necrosis about the foot or ankle. Scattered degenerative changes are seen. Sprain/partial tear of the anterior talofibular and calcaneofibular ligaments. Distal posterior tibial tendinosis with partial tearing and fluid surrounding the tendon. Splitting of the peroneus brevis tendon with fluid surrounding the tendon. Signed by: Dr. Jose Brock M.D. on 07/05/2017 8:51 AM
[2017-07-05 11:29] LABS: CREATININE,URINE RANDOM 22.54 mg/dL (63-166); TOTAL PROTEIN, URINE 28.1 mg/dL (1-14)
[2017-07-05] MEDS ORDERED: CLONIDINE HCL 0.1 MG TAB PO PRN (12:15)
--- NOTE | 2017-07-05 13:47 | Diagnostic Imaging Report ---
EXAMINATION: Renal ultrasound. CLINICAL HISTORY :Acute kidney injury COMPARISON: <None available.> TECHNIQUE: Grayscale and color Doppler evaluation of the kidneys and bladder was performed in transverse and longitudinal planes. DISCUSSION: RIGHT KIDNEY: The right kidney measures 11 cm in length and shows normal renal cortical echogenicity. No hydronephrosis, shadowing calculi or solid mass lesions. LEFT KIDNEY: The left kidney measures 12.1 cm in length and shows normal renal cortical echogenicity. No hydronephrosis, shadowing calculi or solid mass lesions. BLADDER: Unremarkable. Right and left ureteral jets are identified. IMPRESSION: Unremarkable sonographic appearance of the kidneys. Signed by: Dr. Dannei Coffey M.D. on 07/05/2017 1:44 PM
--- NOTE | 2017-07-05 15:08 | Consultation ---
DATE OF CONSULTATION: CHIEF COMPLAINT AND HISTORY OF CHIEF COMPLAINT: Mr. Darnell Montesinos is a most pleasant, 72-year-old gentleman who presents today complaining of right ankle pain. He has been hospitalized for the last several days on IV antibiotics as well as rest, walking only with the aid of a walker. He does state that he twisted his ankle when walking. He was treated on an outpatient basis for 1 week with antibiotics and failed to resolve. PREVIOUS MEDICAL HISTORY: Significant. He has a history of coronary artery disease as well as hypertension, diabetes, long-term insulin use, neuropathy and peripheral arterial disease. REVIEW OF SYSTEMS: Otherwise negative. He does not have chest pain or shortness of breath. He does have pain in the right foot. SOCIAL HISTORY: The patient denies history of alcohol use or IV drug abuse. PHYSICAL EVALUATION OF LOWER EXTREMITIES VASCULAR STATUS: The patient has palpable pedal pulses, although mildly so. NEUROLOGIC: He does seem to have a loss of protective sensation as evidenced by [place] monofilament testing, especially the distal plantar aspect of the toes. DERMATOLOGIC: No other significant lesions are present. MUSCULOSKELETAL: The patient has severe pain along the course of the posterior tibial tendon, into and around the ankle, less so on the lateral aspect. Radiographs which were reviewed are negative for any significant pathology. He is currently under workup by infectious disease for possible infection as he does have an elevated white count. The MRI of the right foot and ankle, which was performed on 07/03/2017, done in conjunction and in comparison with the radiographs, does show a lack of bone pathology. There is no acute fracture. No evidence of avascular necrosis or osseous erosion or focal bone marrow edema, thus ruling out a significant osteomyelitis. There is, however, a sprain or partial tear of the anterior talofibular ligament as well as the calcaneofibular ligament. More specifically, the MRI of the right ankle does show a distal posterior tibial tendinosis with partial tearing and fluid surrounding the tendon, indicating a tenosynovitis or significant inflammatory process of this tendon. At this point, I feel this is the most significant pathology and that which is causing the bulk of his pain. I would recommend immobilization in a CAM walker or walking boot anytime he is up on his foot over the course of the next 6 to 8 weeks in order to facilitate a healing of that partial tear and reduce the surrounding inflammation. An [place] bandage may also be helpful when in bed with a minimal tightness to prevent vascular occlusion. The patient should benefit from any further ankle pathology based on the immobilization while Dr. Yañez concludes his workup on further potential infection. Job#: [id number]
[2017-07-05] MEDS: ATORVASTATIN 40 MG TAB PO SCH (21:00)
[2017-07-06] VITALS (7 sets, daily range): BP systolic 133–161; BP diastolic 59–70
[2017-07-06] MEDS: CLINDAMYCIN 600MG/D5W 50ML 50 ML IV SCH ×2 (05:44→13:04)
[2017-07-06] MEDS: LUBIPROSTONE 24 MCG CAP PO SCH ×2 (08:48→16:00)
[2017-07-06] MEDS: GLIPIZIDE 5 MG TAB PO SCH ×2 (09:12→16:52)
[2017-07-06] MEDS: AMLODIPINE BESYLATE 5 MG TAB PO SCH (09:13)
[2017-07-06] MEDS: METHYLPREDNISOLONE SOD SUCC 40 MG/ML VIAL IV SCH (09:13)
[2017-07-06] MEDS: CITALOPRAM HYDROBROMIDE 20 MG TAB PO SCH (09:13)
[2017-07-06] MEDS: METOPROLOL SUCCINATE 25 MG TAB XL PO SCH (09:13)
[2017-07-06] MEDS: INSULIN DETEMIR 100 UNIT/ML PEN SQ SCH (09:13)
[2017-07-06] MEDS: CLOPIDOGREL BISULFATE 75 MG TAB PO SCH (09:13)
[2017-07-06] MEDS: PANTOPRAZOLE SOD 40 MG TABEC PO SCH (09:13)
[2017-07-06] MEDS: GABAPENTIN 300 MG CAP PO SCH ×2 (09:13→16:53)
[2017-07-06] MEDS: INSULIN REGULAR, HUMAN 100 UNIT/1 ML 3ML VIAL SQ SCH ×3 (09:13→16:53)
[2017-07-06] MEDS ORDERED: INSULIN REGULAR, HUMAN 100 UNIT/1 ML 3ML VIAL SQ STA (16:09)
[2017-07-06] MEDS ORDERED: CLINDAMYCIN HC150 MG PO (18:11)
== END 2017-07-06 18:24 | disposition home or self-care (01) | DRG 603 ==
LOC: ER 09:30 → MED/SURG3 12:53 → OBSVTOIN 07-06
PROVIDERS: ADMIT Family Medicine; ATTEND Family Medicine
DX: L03.115 Cellulitis of right lower limb (principal); N17.9 Acute kidney failure, unspecified; E87.1 Hypo-osmolality and hyponatremia; E87.5 Hyperkalemia; E11.65 Type 2 diabetes mellitus with hyperglycemia; Z79.4 Long term (current) use of insulin; I25.10 Atherosclerotic heart disease of native coronary artery without angina pectoris; E11.22 Type 2 diabetes mellitus with diabetic chronic kidney disease; E11.51 Type 2 diabetes mellitus with diabetic peripheral angiopathy without gangrene; N18.3 Chronic kidney disease, stage 3 (moderate); M77.9 Enthesopathy, unspecified; D72.829 Elevated white blood cell count, unspecified; S93.401A Sprain of unspecified ligament of right ankle, initial encounter; J44.9 Chronic obstructive pulmonary disease, unspecified; I48.91 Unspecified atrial fibrillation; I50.9 Heart failure, unspecified; E78.00 Pure hypercholesterolemia, unspecified; S81.812A Laceration without foreign body, left lower leg, initial encounter; S81.811A Laceration without foreign body, right lower leg, initial encounter
CPT/HCPCS: 36415; 71045; 76770; 80048; 80053; 81001; 82550; 82553; 82570; 82948; 83036; 83735; 84156; 84300; 84443; 84484; 84550; 85025; 85610; 85651; 85730; 86140; 87086; 93005; 99284; G0378; J2543; J2920; J7030

== ENCOUNTER → 2020-08-08 | Outpatient (CLI) | payer MEDICARE ==
[~2020-08-08] MED LIST changes: +CLINDAMYCIN HC150 MG PO; +CLOPIDOGREL75 MG PO; +FUROSEMIDE40 MG PO; +GABAPENTIN300 MG PO; +LANTUS 3ML100 UNITS/ SC
== END ==
LOC: RAD 10:00
PROVIDERS: ATTEND Internal Medicine
DX: Z00.00 Encounter for general adult medical examination without abnormal findings (principal)
CPT/HCPCS: 71046

== ENCOUNTER 2022-05-08 12:08 | Emergency (ER) | payer MEDICARE ==
[~2022-05-08] VITALS: Ht 157.5 cm; Wt 82.6 kg
[2022-05-08] MEDS ORDERED: ASPIRIN 81 MG CHEW TAB PO ONE (12:30)
[2022-05-08 13:12] LABS: CREATINE KINASE MB 1.9 ng/mL (0-5.0)
[2022-05-08 14:04] LABS: BASOPHILS # (AUTO) 0.1 (0.0-0.1); BASOPHILS % 1.1 % (0.0-1.0); EOSINOPHILS # (AUTO) 0.3 (0.0-0.4); EOSINOPHILS % 3.4 % (0.0-6.0); HEMATOCRIT 41.4 % (38.2-49.6); HEMOGLOBIN 13.3 g/dL (14.0-18.0); LYMPHOCYTES # (AUTO) 3.3 (1.0-3.2); MEAN CORPUSCULAR HGB CONC 32.1 g/dL (31-35); MEAN CORPUSCULAR VOLUME 90.2 fL (81-99); MONOCYTES % 10.8 % (4.4-11.3); NEUTROPHILS # (AUTO) 4.6 (2.1-6.9); NEUTROPHILS % 49.2 % (38.7-80.0); PLATELET COUNT 278 x10e3/uL (140-360); RED BLOOD COUNT 4.59 x10e6/uL (4.3-5.7)
[2022-05-08 14:33] LABS: ALBUMIN 3.6 g/dL (3.5-5.0); ALBUMIN/GLOBULIN RATIO 1.1 (0.8-2.0); ANION GAP 15.5 mmol/L (8-16); CALCIUM 9.2 mg/dL (8.4-10.2); CREATININE, SERUM 2.6 mg/dL (0.72-1.25); POTASSIUM 4.5 mmol/L (3.5-5.1)
[2022-05-08] MEDS ORDERED: AMOXICILLIN/CLAVULANATE K 500 MG TAB PO SCH (16:00)
[2022-05-08] MEDS: MOXIFLOXACIN HCL(OPTH) 3 ML BTL OP SCH ×2 (17:40→18:39)
== END 2022-05-08 21:20 | disposition other institution (70) ==
LOC: ER 12:14
DX: R07.9 Chest pain, unspecified (principal); M50.30 Other cervical disc degeneration, unspecified cervical region; L03.213 Periorbital cellulitis; H10.9 Unspecified conjunctivitis; Z20.822 Contact with and (suspected) exposure to COVID-19; R94.31 Abnormal electrocardiogram [ECG] [EKG]
CPT/HCPCS: 0223U; 36415; 71045; 72125; 80053; 82550; 82553; 84484; 85025; 93005; 99284

== ENCOUNTER → 2022-05-18 | Day surgery (SDC) | payer MEDICARE ==
[2022-05-15 13:04] LABS: BASOPHILS # (AUTO) 0.1 (0.0-0.1); BASOPHILS % 0.9 % (0.0-1.0); EOSINOPHILS # (AUTO) 0.4 (0.0-0.4); EOSINOPHILS % 3.2 % (0.0-6.0); HEMATOCRIT 40.6 % (38.2-49.6); LYMPHOCYTES # (AUTO) 3.1 (1.0-3.2); MEAN CORPUSCULAR HEMOGLOBIN 29.1 pg (28-32); MONOCYTES # (AUTO) 0.9 (0.2-0.8); MONOCYTES % 7.9 % (4.4-11.3); NEUTROPHILS # (AUTO) 6.6 (2.1-6.9); NEUTROPHILS % 59.2 % (38.7-80.0); PLATELET COUNT 239 x10e3/uL (140-360); RED BLOOD COUNT 4.46 x10e6/uL (4.3-5.7); RED CELL DISTRIBUTION WIDTH 14.5 % (11.7-14.4)
[~2022-05-18] MED LIST changes: +ALLOPURINOL100 MG PO; +AMITRIPTYLINE H10 MG PO; +DEXTROSE 5% 250ML 250 ML IV ONE; +FLOMAX0.4 MG PO; +HUMALOG MI100 UNIT/2 SQ; +LACTATED RINGER'S 1,000 ML ONE; +LANTUS 3ML100 UNITS/; +LIDOCAINE HCL 2% LOCAL INJ 5 ML SDV VIAL INJ ONE; +METOPROLOL SUCC50 MG PO; +PROPOFOL IV EMULSION 10 MG/ML 20 ML VIAL ONE
[2022-05-18 10:08] LABS: ANION GAP 16.1 mmol/L (8-16); CALCIUM 8.8 mg/dL (8.4-10.2); CREATININE, SERUM 2.34 mg/dL (0.72-1.25); POTASSIUM 3.1 mmol/L (3.5-5.1)
[2022-05-18 10:09] LABS: INR 1.07; PROTHROMBIN TIME 14.4 seconds (11.9-14.5)
[2022-05-18 10:10] LABS: PARTIAL THROMBOPLASTIN TIME 33.3 seconds (23.8-35.5)
[2022-05-18 12:07] VITALS: BP 126/69
== END | disposition home or self-care (01) ==
LOC: OR 08:29
PROVIDERS: ATTEND Internal Medicine Gastroenterology
DX: D50.9 Iron deficiency anemia, unspecified (principal); K29.50 Unspecified chronic gastritis without bleeding; E11.22 Type 2 diabetes mellitus with diabetic chronic kidney disease; I12.0 Hypertensive chronic kidney disease with stage 5 chronic kidney disease or end stage renal disease; N18.6 End stage renal disease; I25.810 Atherosclerosis of coronary artery bypass graft(s) without angina pectoris; Z01.810 Encounter for preprocedural cardiovascular examination; Z01.812 Encounter for preprocedural laboratory examination; Z79.02 Long term (current) use of antithrombotics/antiplatelets; Z79.4 Long term (current) use of insulin; Z79.899 Other long term (current) drug therapy; Z95.1 Presence of aortocoronary bypass graft; Z89.9 Acquired absence of limb, unspecified
CPT/HCPCS: 36415 ×2; 43239; 45378; 80048; 82948; 85025; 85610; 85730; 88305; 88342; 93005; J7070; J7121; 88304; 88312; J2001